=== PATIENT | female | born 1955 | race Caucasian/White ===

== ENCOUNTER 2021-08-30 18:02 | Emergency (ER) | payer OTHER, SELFPAY ==
--- NOTE | 2021-08-30 18:16 | DI.CT.S_ITS ---
PROCEDURE: CT ABDOMEN PELVIS W CON INDICATIONS: History of liver abscess with drain but drain came out TECHNIQUE: After the administration of intravenous contrast, axial sections acquired from the lung bases to the pubic symphysis. Coronal and sagittal reformats were performed. For radiation dose reduction, the following was used: automated exposure control, adjustment of mA and/or kV according to patient size. COMPARISON: None. FINDINGS: Image quality: Excellent. Lung bases: Unremarkable. Heart: No significant findings. ABDOMEN: Liver: There is a 2.9 centimeter in diameter fluid collection with surrounding edema involving the anterior-superior margin of the right lobe of the liver compatible with patient's known hepatic abscess. Small subcapsular fluid collection noted at the dome of the right lobe of the liver which may represent subcapsular spread of patient's abscess. Linear low-density tract is noted extending from the right hepatic abscess to the skin surface compatible with prior surgical drain tract. Gallbladder: Mildly contracted, but within normal limits. Biliary ducts: Unremarkable. Pancreas: Unremarkable. Spleen: Unremarkable. Adrenal Glands: Unremarkable. Kidneys and Ureters: Unremarkable. Stomach and Bowel: Stomach, small bowel loops, and colon are unremarkable. Moderate amount of stool noted throughout the colon. The appendix is normal. Peritoneum: No abnormal intraperitoneal fluid. No free air. Ventral Wall: No hernias. Abdominal Nodes: No retroperitoneal or mesenteric adenopathy by size criteria. Vessels: Aorta and inferior vena cava are normal in size. Scattered atherosclerotic calcifications involving the abdominal and pelvic vasculature. PELVIS: Pelvic Organs: Multiple hypoattenuating nodules and masses are noted in the uterus which likely represent uterine fibroids. Bladder: Unremarkable. Pelvic Nodes: No enlarged lymph nodes. Miscellaneous: No hernias are seen. Bones: Spine degenerative disc disease and facet arthropathy. IMPRESSION: 1. 2.9 centimeter abscess in the anterior-superior margin of the right lobe of the liver. Small subcapsular fluid collection noted in the dome of the right lobe of the liver near the abscess may represent subcapsular spread of infection. 2. Multiple hypoattenuating lesions in the uterus which may represent fibroids, however finding is nonspecific and pelvic ultrasound is recommended when clinically feasible to exclude other etiologies. Dictated by: Meghan Mueller MD, PhD on 08/30/2021 at 19:24 Approved by: Meghan Mueller MD, PhD on 08/30/2021 at 19:29
[2021-08-30 18:17] VITALS: BP 141/65; PULSE 73; RESP 17; TEMP 36.6; O2SAT 99; BMI 24.5
[2021-08-30 18:37] VITALS: BP 138/63; PULSE 87; RESP 18; TEMP 36.6; O2SAT 99
[2021-08-30 18:46] LABS: BUN Creatinine Ratio 25.4 (6-22); Blood Urea Nitrogen 15 mg/dL (7-17); Calcium 8.7 mg/dL (8.4-10.2); Carbon Dioxide 27 mmol/L (22-32); Chloride 105 mmol/L (98-107); Estimated Glomerular Filt Rate > 60.0 mL/min (>60); Glucose 90 mg/dL (80-110); HEMOLYSIS < 15 (0-50); Potassium 3.6 mmol/L (3.4-5.1); Sodium 138 mmol/L (137-145)
[2021-08-30 18:47] LABS: Add Manual Diff / Slide Review NO; Basophils Absolute Auto 100 /uL (0-100); Basophils Percent Auto 2.1 % (0-2); Eosinophils Absolute Auto 300 /uL (0-450); Eosinophils Percent Auto 3.9 % (2-4); Hematocrit 35.7 % (36-46); Hemoglobin 11.9 g/dL (12.0-16.0); Lymphocytes Absolute Auto 2100 /uL (1100-4500); Lymphocytes Percent Auto 31.7 % (25-40); Mean Corpuscular HGB Conc 33.3 % (30-36); Mean Corpuscular Hemoglobin 30.3 PG (26-34); Mean Corpuscular Volume 91.1 fL (80-100); Monocytes Absolute Auto 300 /uL (0-900); Monocytes Percent Auto 4.8 % (3-14); Neutrophils Absolute Auto 3700 /uL (1500-7000); Neutrophils Percent Auto 57.5 % (50-75); Platelet Count 260 X10^3/uL (150-400); Red Blood Cell Count 3.92 X10^6/uL (4.0-5.2); White Blood Cell Count 6.5 X10^3/uL (4.5-11.0)
--- NOTE | 2021-08-30 19:01 | ED_ITS ---
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 She has had abscesses around her liver secondary to this. She has been treated with antibiotics. She has a drain in place. She was supposed to follow-up with her infectious disease provider at the beginning of next week to have a repeat CT scan performed to see whether not the drain could be removed. Earlier this evening the drain was removed accidentally. She comes to the emergency department for further evaluation. Related Data Home Medications Medication Instructions Recorded Confirmed atorvastatin 40 mg tablet 40 mg PO BEDTIME 08/30/21 08/30/21 ezetimibe 10 mg tablet 10 mg PO DAILY 08/30/21 08/30/21 metronidazole 500 mg tablet 500 mg PO Q8HR 08/30/21 08/30/21 Allergies Allergy/AdvReac Type Severity Reaction Status Date / Time Sulfa (Sulfonamide Allergy Rash Verified 08/30/21 18:22 Antibiotics) Review of Systems Gastrointestinal Gastrointestinal: Reports as per HPI, Reports system reviewed and no additional complaints, except as documented, Denies abdominal pain, Denies change in bowel habits, Denies diarrhea, Denies nausea and Denies vomiting Genitourinary Genitourinary: Reports system reviewed and no additional complaints, except as documented Musculoskeletal Musculoskeletal: Denies back pain Integumentary/Breasts Skin/Breast: Reports system reviewed and no additional complaints, except as documented Neurologic Neurologic: Reports system reviewed and no additional complaints, except as documented Hematologic/Lymphatic On Anticoagulants: No Patient History Medical History 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 Social History Smoking Status: Never smoker Smoking Status: Never smoker alcohol intake frequency: other Substance Use Type: does not use Exam Initial Vital Signs Initial Vital Signs: Vital Signs Temperature 97.9 F 08/30/21 18:17 Pulse Rate 73 08/30/21 18:17 Respiratory Rate 17 08/30/21 18:17 Blood Pressure 141/65 H 08/30/21 18:17 Pulse Oximetry 99 08/30/21 18:17 HENMT Head: normal to inspection and normocephalic Resp Effort & Inspection: normal respiratory effort Cardio Rate: regular rate GI Palpation: soft, No firm and No tender Skin General: no rashes or lesions noted Neuro General: patient alert, patient awake and moves all extremities Extrem General: capillary refill normal Psych Appearance: grossly normal Course Orders Ordered: ED Orders 08/30/21 18:16 CT abdomen pelvis w con Stat 08/30/21 18:26 Basic Metabolic Panel Stat Complete Blood Count AUTO DIFF Stat Vital Signs Vital signs: Vital Signs - 8 hr 08/30/21 18:17 08/30/21 18:37 Temperature 97.9 F 97.9 F Pulse Rate 73 87 Respiratory Rate 17 18 Blood Pressure 141/65 H 138/63 Pulse Oximetry 99 99 MDM - Recheck/Abnormal Lab/Rx Lab Data Attestation: I reviewed the patient's lab results. Result diagrams: 08/30/21 18:26 08/30/21 18:26 Labs: Lab Results 08/30/21 08/30/21 Range/Units 18:26 18:26 WBC 6.5 (4.5-11.0) X10^3/uL RBC 3.92 L (4.0-5.2) X10^6/uL Hgb 11.9 L (12.0-16.0) g/dL Hct 35.7 L (36-46) % MCV 91.1 (80-100) fL MCH 30.3 (26-34) PG MCHC 33.3 (30-36) % RDW 15.0 H (11.6-14.8) % Plt Count 260 (150-400) X10^3/uL Neut % (Auto) 57.5 (50-75) % Lymph % (Auto) 31.7 (25-40) % Metcalfe % (Auto) 4.8 (3-14) % Eos % (Auto) 3.9 (2-4) % Baso % (Auto) 2.1 H (0-2) % Neut # (Auto) 3700 (9669-9174) /uL Lymph # (Auto) 2100 (8856-4440) /uL Metcalfe # (Auto) 300 (0-900) /uL Eos # (Auto) 300 (0-450) /uL Baso # (Auto) 100 (0-100) /uL Sodium 138 (137-145) mmol/L Potassium 3.6 (3.4-5.1) mmol/L Chloride 105 (98-107) mmol/L Carbon Dioxide 27 (22-32) mmol/L BUN 15 (7-17) mg/dL Creatinine 0.59 (0.52-1.04) mg/dL Estimated GFR > 60.0 (>60) mL/min BUN/Creatinine Ratio 25.4 H (6-22) Glucose 90 (80-110) mg/dL Calcium 8.7 (8.4-10.2) mg/dL Imaging Data CT scan - abdomen/pelvis: Radiologist's Impression: [address] [address] [address] Scan Report Signed Patient: Samantha Ordaz MR#: [id number] : 1955 Acct:[id number] Age/Sex: 66 / F Date of Service: 08/30/21 Loc: ED Accession Number: [id number] ?? Procedure: CT abdomen pelvis w con Ordering Provider: Jc Ren D.O. PROCEDURE:? CT ABDOMEN PELVIS W CON ? INDICATIONS:? History of liver abscess with drain but drain came out ? TECHNIQUE:? After the administration of intravenous contrast, axial sections acquired from the lung bases to the pubic symphysis.? Coronal and sagittal reformats were performed.? For radiation dose reduction, the following was used:? automated exposure control, adjustment of mA and/or kV according to patient size.? ? COMPARISON:? None. ? FINDINGS:? Image quality:? Excellent.? ? Lung bases:? Unremarkable. Heart:? No significant findings. ? ABDOMEN: Liver:? There is a 2.9 centimeter in diameter fluid collection with surrounding edema involving the anterior-superior margin of the right lobe of the liver compatible with patient's known hepatic abscess.? Small subcapsular fluid collection noted at the dome of the right lobe of the liver which may represent subcapsular spread of patient's abscess.? Linear low-density tract is noted extending from the right hepatic abscess to the skin surface compatible with prior surgical drain tract. Gallbladder:? Mildly contracted, but within normal limits.? ? Biliary ducts:? Unremarkable.? ? Pancreas:? Unremarkable.? ? Spleen:? Unremarkable.? ? Adrenal Glands:? Unremarkable.? ? Kidneys and Ureters:? Unremarkable.? ? ? Stomach and Bowel:? Stomach, small bowel loops, and colon are unremarkable.? Moderate amount of stool noted throughout the colon.? The appendix is normal. Peritoneum:? No abnormal intraperitoneal fluid.? No free air.? ? Ventral Wall: ? No hernias.? Abdominal Nodes:? No retroperitoneal or mesenteric adenopathy by size criteria.? Vessels:? Aorta and inferior vena cava are normal in size. Scattered atherosclerotic calcifications involving the abdominal and pelvic vasculature. ? PELVIS: Pelvic Organs:? Multiple hypoattenuating nodules and masses are noted in the uterus which likely represent uterine fibroids. Bladder:? Unremarkable.? ? Pelvic Nodes: No enlarged lymph nodes.? Miscellaneous: No hernias are seen. ? ? ? Bones:? Spine degenerative disc disease and facet arthropathy. ? ? IMPRESSION:? ? 1. 2.9 centimeter abscess in the anterior-superior margin of the right lobe of the liver. ?Small subcapsular fluid collection noted in the dome of the right lobe of the liver near the abscess may represent subcapsular spread of infection. ? 2. Multiple hypoattenuating lesions in the uterus which may represent fibroids, however finding is nonspecific and pelvic ultrasound is recommended when clinically feasible to exclude other etiologies.? ? ? Dictated by: Meghan Mueller MD, PhD on 08/30/2021 at 19:24 ? ? Approved by: Meghan Mueller MD, PhD on 08/30/2021 at 19:29?? MDM Narrative Medical decision making narrative: The CT scan today shows a 2.9 cm finding that is consistent with an abscess. Patient states this is smaller than her last abscess. We discussed options to include me talking with her provider from [place] who is managing the drain in the abscess to discuss whether not the drain needs to be replaced verses discharging patient home with a copy of the CT scan as she has a follow-up on Wednesday already scheduled. The patient opted to be discharged home. She feels well. She was given return precautions. She expressed understanding and agreement. Discharge Plan Departure Patient Disposition: Home Clinical Impression: Abscess of liver Activity Restrictions/Additional Instructions: I would keep a bandage over the area just to keep your clothes clean. I would not be surprised if you get some oozing from the area but it should not bleed. He did does please return to the emergency department. Keep all of your scheduled medical appointments. Return to the emergency department for any new or worsening symptoms. Prescriptions: No Action atorvastatin 40 mg tablet 40 mg PO BEDTIME 0RF metronidazole 500 mg tablet 500 mg PO Q8HR 0RF ezetimibe 10 mg tablet 10 mg PO DAILY 0RF
--- NOTE | 2021-08-30 19:30 | PC.NURSE ---
Pt states she went to [place] in May, picked up a parasite that infected her liver and she's being treated by an infectious disease doctor in [place]. Pt had MT placed in 07/19/21 for liver abscess and accidentally pulled the drain out this afternoon.
== END 2021-08-30 20:00 | disposition home or self-care (01) ==
PROVIDERS: Emergency Provider Emergency Medicine
DX: K75.0 Abscess of liver (principal)
CPT/HCPCS: 36415; 74177; 80048; 85025; 99283; 99284